=== PATIENT | female | born 1985 | race African-American/Black ===

== ENCOUNTER 2023-04-23 18:22 | Observation (INO) | payer MEDICAID ==
[~2023-04-23] VITALS: Ht 175.3 cm; Wt 117.9 kg
== END 2023-04-23 22:14 | disposition home or self-care (01) ==
LOC: LDRP 18:22
PROVIDERS: ADMIT Obstetrics & Gynecology; ATTEND Obstetrics & Gynecology
DX: O62.9 Abnormality of forces of labor, unspecified (principal); O26.893 Other specified pregnancy related conditions, third trimester; R10.30 Lower abdominal pain, unspecified; Z3A.38 38 weeks gestation of pregnancy
CPT/HCPCS: 59025; 76805; 76818; 81002; 94760; G0378